=== PATIENT | female | born 1945 | race Caucasian/White ===

== ENCOUNTER 2020-08-09 12:17 | Emergency (ER) | payer OTHER ==
[2020-08-09 12:59] VITALS: BP 166/96; PULSE 74; TEMP 96.5; BMI 26.7
[2020-08-09 14:46] LABS: BASO % 0.8 % (0-2.0); EOS % 3.5 % (0-4.5); HEMATOCRIT 38.6 % (32.4-45.2); LYMPH % 34.2 % (8-40); MCH 28.7 pg (25.7-33.7); MCHC 33.6 g/dl (32.0-36.0); MEAN CELL VOLUME 85.3 fl (80-96); MONO % 8.9 % (3.8-10.2); NEUT % 52.6 % (42.8-82.8); PLATELET COUNT 436 K/MM3 (134-434); RBC 4.52 M/mm3 (3.60-5.2); RDW 13.9 % (11.6-15.6)
[2020-08-09 14:52] LABS: INR 1.03 (0.83-1.09); PROTHROMBIN TIME (PATIENT) 12.4 SEC (9.7-13.0)
[2020-08-09 14:55] LABS: ACTIVATED PTT 34.3 SECONDS (25.2-36.5)
[2020-08-09 15:08] LABS: BLOOD UREA NITROGEN 12.8 mg/dL (7-18); CALCIUM 9.4 mg/dL (8.5-10.1)
[2020-08-09 15:11] LABS: CREATININE 0.6 mg/dL (0.55-1.3)
[2020-08-09 15:13] LABS: BILIRUBIN,TOTAL 0.5 mg/dL (0.2-1); TOT PROT 7.5 g/dl (6.4-8.2)
== END 2020-08-09 16:04 | disposition home or self-care (01) ==
LOC: JER 12:17
DX: R04.0 Epistaxis (principal); R07.89 Other chest pain
CPT/HCPCS: 36415; 71046-TC-FY; 80053; 82550; 84484; 85025; 85610; 85730; 86850; 86900; 86901; 93005; 93010; 99285-25

== ENCOUNTER 2021-01-14 20:19 | Emergency (ER) | payer OTHER ==
[2021-01-14 20:29] VITALS: TEMP 97.6; BMI 24.9
[2021-01-14] MEDS ORDERED: DEXAMETHASONE SOD PHOSPHATE 10 MG/1 ML VIAL IVPUSH ONE ×2 (20:36→21:58)
[2021-01-14] MEDS: ALBUTEROL SO4 2.5/IPRATROPIUM 0.5 INH SOL 3 ML VIAL.NEB. NEB SCH ×4 (20:40→22:26)
[2021-01-14] MEDS ORDERED: ALBUTEROL SO4 2.5/IPRATROPIUM 0.5 INH SOL 3 ML VIAL.NEB. NEB ONE ×2 (20:41→22:00)
[2021-01-14] MEDS ORDERED: DEXAMETHASONE SOD PHOSPHATE 10 MG/1 ML VIAL ONE ×3 (20:42→22:09)
[2021-01-14] MEDS ORDERED: ALBUTEROL SO4 2.5/IPRATROPIUM 0.5 INH SOL 3 ML VIAL.NEB. NEB SCH (20:45)
[2021-01-14 20:54] LABS: VENOUS BASE EXCESS -0.9 mmol/L (-2-2); VENOUS O2 SATURATION 87.3 % (70-80); VENOUS PH 7.524 (7.310-7.410)
[2021-01-14 21:06] LABS: BASO % 0.8 % (0-2.0); EOS % 2.9 % (0-4.5); HEMATOCRIT 40.7 % (32.4-45.2); HEMOGLOBIN 13.8 GM/dL (10.7-15.3); LYMPH % 44.9 % (8-40); MCH 28.5 pg (25.7-33.7); MEAN CELL VOLUME 83.9 fl (80-96); MEAN PLT VOLUME 7.9 fl (7.5-11.1); MONO % 8.5 % (3.8-10.2); NEUT % 42.9 % (42.8-82.8); PLATELET COUNT 450 10^3/uL (134-434); RBC 4.85 M/mm3 (3.60-5.2); RDW 14.7 % (11.6-15.6); WHITE BLOOD COUNT 10.7 K/mm3 (4.0-10.0)
[2021-01-14 21:22] LABS: CALCIUM 8.8 mg/dL (8.5-10.1)
[2021-01-14 21:23] LABS: ALBUMIN 3.4 g/dl (3.4-5.0)
[2021-01-14 21:26] LABS: CREATININE 0.8 mg/dL (0.55-1.3)
[2021-01-14 21:27] LABS: BILIRUBIN,TOTAL 0.2 mg/dL (0.2-1)
[2021-01-14 21:28] LABS: TOT PROT 7.2 g/dl (6.4-8.2)
[2021-01-14 23:42] VITALS: BP 141/80; PULSE 92
== END 2021-01-14 23:45 | disposition home or self-care (01) ==
LOC: JER 20:19
PROC: 3E033GC Introduction of Other Therapeutic Substance into Peripheral Vein, Percutaneous Approach (ICD-10-PCS; principal; 2021-01-14)
PROC: 3E0F7GC Introduction of Other Therapeutic Substance into Respiratory Tract, Via Natural or Artificial Opening (ICD-10-PCS; 2021-01-14)
DX: J98.01 Acute bronchospasm (principal)
CPT/HCPCS: 36415; 71045-TC-FY; 80053; 82375; 82803; 85025; 94640; 96374; 99284-25; J1100

== ENCOUNTER 2024-10-08 10:51 | Inpatient (IN) | payer OTHER ==
[2024-10-08 11:00] VITALS: BMI 23.5
[2024-10-08] MEDS: ALBUTEROL SO4 2.5/IPRATROPIUM 0.5 INH SOL 3 ML VIAL.NEB. NEB SCH ×3 (11:22→21:45)
[2024-10-08] MEDS ORDERED: DEXAMETHASONE SOD PHOSPHATE 10 MG/1 ML VIAL ONE (11:45)
[2024-10-08] MEDS: DEXAMETHASONE SOD PHOSPHATE 10 MG/1 ML VIAL IVPUSH ONE (12:12)
[2024-10-08 12:28] LABS: BG HCT 45.0 % (32.4-45.2); VENOUS BASE EXCESS -0.8 mmol/L (-2-2); VENOUS O2 SATURATION 77.4 % (70-80); VENOUS PCO2 36.4 mmHg (38-52); VENOUS PH 7.421 (7.310-7.410)
[2024-10-08 12:33] LABS: ABSOLUTE IMMATURE GRANULOCYTES 0.05 x10^3/uL (0.0-0.031); BASOPHILS # 0.01 x10^3/uL (0.01-0.08); EOSINOPHIL % 0.0 % (0.7-5.8); EOSINOPHILS # 0.00 x10^3/uL (0.04-0.36); MCHC 32.9 g/dl (32.2-35.5); MEAN CELL VOLUME 85.0 fl (79.4-94.8); MEAN PLT VOLUME 9.3 fl (9.4-12.3); MONOCYTE # 0.17 x10^3/uL (0.24-0.86); MONOCYTE % 1.7 % (4.7-12.5); RDW 13.2 % (12.4-16.6)
[2024-10-08 12:40] LABS: INR 1.06 (0.83-1.09); PROTHROMBIN TIME (PATIENT) 11.5 SEC (9.7-13.0)
[2024-10-08 12:43] LABS: ACTIVATED PTT 29.8 SECONDS (25.2-36.5)
[2024-10-08 12:47] LABS: CO2 25.0 mmol/L (21-32); GLUCOSE,RANDOM 200.0 mg/dL (74-106)
[2024-10-08 12:51] LABS: CREATININE 0.7 mg/dL (0.55-1.3); SGOT/AST 34.0 U/L (15-37); SGPT/ALT 31.0 U/L (13-61)
[2024-10-08 12:52] LABS: TOT PROT 7.8 g/dl (6.4-8.2)
[2024-10-08 12:54] LABS: ALK PHOS 100.0 U/L (45-117)
[2024-10-08 12:56] LABS: N-TERMINAL BNP 415.6 pg/ml (5-450)
[2024-10-08 13:43] LABS: HCV DIAGNOSTIC IN-HOUSE W/RFLX NON-REACTIVE (NONREACTIVE); HIV INTERPRETATION NEGATIVE (NEGATIVE)
[2024-10-08] MEDS ORDERED: MAGNESIUM SULFATE IN WATER 2 GM/50 ML IVPB IVPB ONE (14:55)
[2024-10-08] MEDS: MAGNESIUM SULFATE IN WATER 2 GM/50 ML IVPB IVPB ONE (15:00)
[2024-10-08] MEDS ORDERED: AZITHROMYCIN IVPB 500 MG/250 ML BAG IVPB ONE (16:26)
[2024-10-08] MEDS: AZITHROMYCIN IVPB 500 MG in DEXTROSE 5%-WATER - 250 ML IVPB ONE (16:38)
[2024-10-08] MEDS: BUDESONIDE 0.5 MG/2 ML INH SUSP VIAL NEB ONE (16:38)
[2024-10-08] MEDS ORDERED: ALBUTEROL SO4 0.083% IH SOL 2.5 MG/3 ML VIAL.NEB. NEB ONE (17:26)
[2024-10-08] MEDS: ALBUTEROL SO4 0.083% IH SOL 2.5 MG/3 ML VIAL.NEB. NEB ONE (17:26)
[2024-10-08 18:38] LABS: CO2 21.0 mmol/L (21-32); GLUCOSE,RANDOM 369.0 mg/dL (74-106)
[2024-10-08 18:40] LABS: CREATININE 1.1 mg/dL (0.55-1.3); SGOT/AST 20.0 U/L (15-37); SGPT/ALT 30.0 U/L (13-61)
[2024-10-08 18:43] LABS: TOT PROT 7.3 g/dl (6.4-8.2)
[2024-10-08 18:44] LABS: ALK PHOS 100.0 U/L (45-117)
[2024-10-08] MEDS ORDERED: methylPREDNISolone NA SUCC 40 MG/1 ML VIAL ONE (19:29)
[2024-10-08] MEDS: methylPREDNISolone NA SUCC 125 MG/2 ML VIAL IVPB SCH (19:32)
[2024-10-08] MEDS: ACETAMINOPHEN 500 MG TABLET (FP) PO ONE (20:46)
[2024-10-09 08:09] LABS: MCHC 32.1 g/dl (32.2-35.5); MEAN CELL VOLUME 86.0 fl (79.4-94.8); MEAN PLT VOLUME 9.9 fl (9.4-12.3); RDW 13.4 % (12.4-16.6)
[2024-10-09 08:18] LABS: CO2 24.0 mmol/L (21-32); GLUCOSE,RANDOM 200.0 mg/dL (74-106)
[2024-10-09 08:21] LABS: CREATININE 0.6 mg/dL (0.55-1.3)
[2024-10-09] MEDS: ENOXAPARIN NA (PORCINE) 40 MG/0.4 ML DISP.SYRIN SQ SCH (09:42)
[2024-10-09] MEDS: AZITHROMYCIN 500 MG TABLET PO SCH (15:58)
[2024-10-09] MEDS: methylPREDNISolone NA SUCC 40 MG/1 ML VIAL IVPUSH SCH (17:12)
[2024-10-09] MEDS: ACETAMINOPHEN 325 MG TABLET (FP) PO PRN (21:54)
[2024-10-10 07:22] LABS: ABSOLUTE IMMATURE GRANULOCYTES 0.12 x10^3/uL (0.0-0.031); BASOPHILS # 0.02 x10^3/uL (0.01-0.08); EOSINOPHIL % 0.0 % (0.7-5.8); EOSINOPHILS # 0.00 x10^3/uL (0.04-0.36); MCHC 32.6 g/dl (32.2-35.5); MEAN CELL VOLUME 85.4 fl (79.4-94.8); MEAN PLT VOLUME 9.4 fl (9.4-12.3); MONOCYTE # 0.46 x10^3/uL (0.24-0.86); MONOCYTE % 3.1 % (4.7-12.5); RDW 13.6 % (12.4-16.6)
[2024-10-10 07:41] LABS: CO2 25.0 mmol/L (21-32); GLUCOSE,RANDOM 199.0 mg/dL (74-106)
[2024-10-10 07:45] LABS: SGOT/AST 13.0 U/L (15-37); SGPT/ALT 24.0 U/L (13-61)
[2024-10-10 07:46] LABS: CREATININE 0.7 mg/dL (0.55-1.3); TOT PROT 6.8 g/dl (6.4-8.2)
[2024-10-10 07:48] LABS: ALK PHOS 82.0 U/L (45-117)
[2024-10-10] MEDS: INSULIN ASPART SLIDING SCALE (NOVOLOG) 1 VIAL SQ SCH (16:47)
[2024-10-11] MEDS: ALBUTEROL SO4 2.5/IPRATROPIUM 0.5 INH SOL 3 ML VIAL.NEB. NEB PRN (08:40)
[2024-10-11] MEDS ORDERED: FLUTICASONE/UMECLIDIN/VILANTER(200-62.5-25 TRELEGY ELLIPTA) INAHLER IH SCH (10:00)
[2024-10-11] MEDS: ALBUTEROL SO4 2.5/IPRATROPIUM 0.5 INH SOL 3 ML VIAL.NEB. NEB SCH (11:30)
[2024-10-11] MEDS: FLUTICASONE/UMECLIDIN/VILANTER(200-62.5-25 TRELEGY ELLIPTA) INAHLER IH SCH (11:31)
[2024-10-11 12:04] LABS: ABSOLUTE IMMATURE GRANULOCYTES 0.20 x10^3/uL (0.0-0.031); BASOPHILS # 0.02 x10^3/uL (0.01-0.08); EOSINOPHIL % 0.0 % (0.7-5.8); EOSINOPHILS # 0.00 x10^3/uL (0.04-0.36); MCHC 32.7 g/dl (32.2-35.5); MEAN CELL VOLUME 84.5 fl (79.4-94.8); MEAN PLT VOLUME 9.1 fl (9.4-12.3); MONOCYTE # 0.82 x10^3/uL (0.24-0.86); MONOCYTE % 5.8 % (4.7-12.5); RDW 13.3 % (12.4-16.6)
[2024-10-12 10:33] LABS: MCHC 33.1 g/dl (32.2-35.5); MEAN CELL VOLUME 84.1 fl (79.4-94.8); MEAN PLT VOLUME 9.1 fl (9.4-12.3); RDW 13.2 % (12.4-16.6)
[2024-10-12 11:06] LABS: GLUCOSE,RANDOM 222.0 mg/dL (74-106)
[2024-10-12 11:09] LABS: CREATININE 0.8 mg/dL (0.55-1.3)
[2024-10-12 11:11] LABS: CO2 23.0 mmol/L (21-32)
[2024-10-12] MEDS: LOSARTAN POTASSIUM 25 MG TABLET PO SCH (14:15)
[2024-10-12] MEDS: BUDESONIDE/FORMETEROL FUMARATE 160/4.5 mcg INHALER IH SCH (15:08)
[2024-10-12] MEDS: methylPREDNISolone NA SUCC 40 MG/1 ML VIAL IVPUSH SCH (22:31)
[2024-10-13] MEDS: AZITHROMYCIN 500 MG VIAL IVPB SCH (11:18)
[2024-10-13] MEDS: INSULIN GLARGINE (LANTUS) 100 UNITS/ML UNITS SQ SCH (11:19)
[2024-10-13] MEDS: methylPREDNISolone NA SUCC 40 MG/1 ML VIAL IVPUSH SCH ×2 (11:19→21:44)
[2024-10-13] MEDS: guaiFENesin 600 MG TABLET.ER (FP) PO SCH (11:32)
[2024-10-13] MEDS: INSULIN GLARGINE (LANTUS) 100 UNITS/ML UNITS SQ ONE (12:16)
[2024-10-13] MEDS: AZITHROMYCIN IVPB 500 MG in SODIUM CHLORIDE 250 ML IVPB SCH (15:03)
[2024-10-13] MEDS: PANTOPRAZOLE 40 MG TABLET PO SCH (15:23)
[2024-10-14 02:25] VITALS: RESP 18
[2024-10-14 09:00] LABS: ABSOLUTE IMMATURE GRANULOCYTES 0.19 x10^3/uL (0.0-0.031); BASOPHILS # 0.02 x10^3/uL (0.01-0.08); EOSINOPHIL % 0.0 % (0.7-5.8); EOSINOPHILS # 0.00 x10^3/uL (0.04-0.36); MCHC 33.0 g/dl (32.2-35.5); MEAN CELL VOLUME 84.6 fl (79.4-94.8); MEAN PLT VOLUME 9.1 fl (9.4-12.3); MONOCYTE # 0.94 x10^3/uL (0.24-0.86); MONOCYTE % 7.7 % (4.7-12.5); RDW 13.5 % (12.4-16.6)
[2024-10-14 09:30] LABS: CO2 24.0 mmol/L (21-32); GLUCOSE,RANDOM 144.0 mg/dL (74-106)
[2024-10-14 09:33] LABS: CREATININE 0.7 mg/dL (0.55-1.3)
[2024-10-14] MEDS: methylPREDNISolone NA SUCC 40 MG/1 ML VIAL IVPUSH SCH (10:54)
[2024-10-14] MEDS: TIOTROPIUM BROMIDE 2.5 MCG (SPIRIVA) RESPIMAT INHALER IH SCH (13:45)
[2024-10-14] MEDS: INSULIN GLARGINE (LANTUS) 100 UNITS/ML UNITS SQ SCH (22:51)
[2024-10-15 09:44] LABS: MCHC 32.3 g/dl (32.2-35.5); MEAN CELL VOLUME 85.1 fl (79.4-94.8); MEAN PLT VOLUME 9.1 fl (9.4-12.3); RDW 13.6 % (12.4-16.6)
[2024-10-15 10:34] LABS: CO2 26.0 mmol/L (21-32); GLUCOSE,RANDOM 126.0 mg/dL (74-106)
[2024-10-15 10:37] LABS: CREATININE 0.7 mg/dL (0.55-1.3); SGOT/AST 13.0 U/L (15-37); SGPT/ALT 33.0 U/L (13-61)
[2024-10-15 10:39] LABS: TOT PROT 6.6 g/dl (6.4-8.2)
[2024-10-15 10:40] LABS: ALK PHOS 78.0 U/L (45-117)
[2024-10-15 12:10] VITALS: BP 142/89; PULSE 65; TEMP 97.7
== END 2024-10-15 14:52 | disposition home or self-care (01) | DRG 192 ==
LOC: JER 10:51 → JERBED 16:27 → J4W 19:58 → J6W TELE 10-11 17:15 → OBSVTOIN 10-12 14:29
PROVIDERS: ADMIT Student in an Organized Health Care Education/Training Program; ATTEND Internal Medicine
DX: J44.1 Chronic obstructive pulmonary disease with (acute) exacerbation (principal); I10 Essential (primary) hypertension; D47.3 Essential (hemorrhagic) thrombocythemia; E78.5 Hyperlipidemia, unspecified; R73.9 Hyperglycemia, unspecified; T38.0X5A Adverse effect of glucocorticoids and synthetic analogues, initial encounter; Y92.89 Other specified places as the place of occurrence of the external cause; R09.02 Hypoxemia
CPT/HCPCS: 36415; 71045-TC-FY; 71275-TC; 80048; 80053; 82803; 82962; 83036; 83735; 83880; 84100; 84132; 84443; 84484; 85025; 85027; 85610; 85730; 86803; 86850; 86900; 86901; 87389; 87637-QW; 93005; 93010; 93306-TC; 94010; 94640; 94761; 97116-GP; 97161-GP; 99285-25; G0378; J1100; Q9967